=== PATIENT | male | born 1955 | race Caucasian/White ===

== ENCOUNTER 2024-04-09 02:50 | Inpatient (IN) | payer OTHER ==
[~2024-04-09] VITALS: Ht 170.2 cm; Wt 76.7 kg
--- NOTE | 2024-04-09 02:58 | NUR ---
BIBA BLS TO 3
[2024-04-09 03:07] VITALS: BP 89/41; PULSE 113; RESP 14; TEMP 99.1; O2SAT 96
--- NOTE | 2024-04-09 03:15 | NUR ---
68y/o male biba due to new onset of confusion that started today. per ems, pt also expierencing generalized weakness and was recently seen at the hospital for uti. pt was started on antibiotics yesterday. pt arrived tachy and hypotensive. pt able to answer questions appropriately. denies any pain. pt alert and oriented to person, place, time, and situation on assessment. nka pmhx: afib, cva
[2024-04-09] MEDS: NACL 0.9% 2,000 ML IV ONE (03:18)
[2024-04-09 03:26] LABS: BASOPHILS % (AUTO) 0.4 % (0.0-2.0); EOSINOPHILS % (AUTO) 0.2 % (0.0-4.0); HEMATOCRIT 39.5 % (36-52); HEMOGLOBIN 13.2 g/dL (12.0-18.0); LYMPHOCYTES # (AUTO) 0.4 K/uL (2.0-11.5); LYMPHOCYTES % (AUTO) 6.3 % (20.5-51.1); MEAN CORPUSCULAR HEMOGLOBIN 30 pg (27-31); MEAN CORPUSCULAR HGB CONC 34 g/dL (33-37); MEAN CORPUSCULAR VOLUME 89.3 fL (80-94); MONOCYTES # (AUTO) 0.5 K/uL (0.8-1.0); MONOCYTES % (AUTO) 7.9 % (1.7-9.3); NEUTROPHILS # (AUTO) 5.3 K/uL (1.8-7.7); NEUTROPHILS % (AUTO) 85.2 % (42.2-75.2); PLATELET COUNT (AUTO) 228 K/uL (140-450); RED BLOOD CELL COUNT(AUTO) 4.42 MIL/uL (4.20-6.10); WHITE BLOOD COUNT (AUTO) 6.3 K/uL (4.8-10.8)
[2024-04-09 03:40] LABS: ANION GAP 16.3 (8-16); CALCIUM 9.6 mg/dL (8.5-10.1); CARBON DIOXIDE 23.7 mmol/L (21-32)
[2024-04-09 03:41] VITALS: O2SAT 99
[2024-04-09 03:41] LABS: INR 1.11 (0.8-1.2); PARTIAL THROMBOPLASTIN TIME 32.4 secs (22-35.6); PROTHROMBIN TIME 11.5 secs (10.8-13.4)
--- NOTE | 2024-04-09 03:41 | NUR ---
RT AT BEDSIDE.
--- NOTE | 2024-04-09 03:41 | NUR ---
68YR OLD MALE BIBA FROM HOME FOR GENRALIZED WEAKNESS X2 WEEKS. ENDORSES PT WAS RECENTLY SEEN AT [facility] FOR UTI AND WAS PRESCRIBED ANTIBIOTICS. PER , PT BASELINE IS AOX4 AND USES WHEELCAHIR AND WALKER AT HOME. PT DOES HAVE 2 ULCERS OF THE BUTTOCK PER . PT APPEARS LETHARHIC AND IS BEDBOUND. STATES TODAY PT SEEMED WEAKER AND CONFUSED. TODAY, SAYS "HE THOUGHT I WAS ARRESTING HIM." PT ON BEDSIDE MONITOR, BEDRAILS UPX2, AND AT BEDSIDE. NKDA A-FIB DM NEUROPATHY RETINA ISSUES
[2024-04-09 03:49] LABS: LACTIC ACID 1.4 mmol/L (0.4-2.0)
[2024-04-09 04:04] LABS: ALANINE AMINOTRANSFERASE 18 U/L (12-78); ALBUMIN 3.2 g/dL (3.4-5.0); ALKALINE PHOSPHATASE 88 U/L (50-136); ASPARTATE AMINOTRANSFERASE 17 U/L (15-37); BILIRUBIN,DIRECT 0.3 mg/dL (0.0-0.3); CREATINE KINASE, TOTAL 13 U/L (39-308); TOTAL BILIRUBIN 0.7 mg/dL (0.0-1.0); TOTAL PROTEIN, SERUM 7.3 g/dL (6.4-8.2)
[2024-04-09] MEDS ORDERED: BACL10TA4 PO (04:21)
[2024-04-09] MEDS ORDERED: IBUP-1842 PO (04:21)
[2024-04-09] MEDS ORDERED: GABA300C PO (04:21)
[2024-04-09] MEDS ORDERED: CARER90 PO (04:21)
[2024-04-09] MEDS ORDERED: ASPI81CT20 PO (04:21)
[2024-04-09] MEDS ORDERED: CHOL1TAB11 PO (04:21)
[2024-04-09] MEDS ORDERED: ATOR20TA PO (04:21)
[2024-04-09] MEDS ORDERED: CHOL5000 PO (04:21)
[2024-04-09] MEDS ORDERED: APIX5TAB PO (04:21)
[2024-04-09] MEDS ORDERED: PRO5 PO (04:21)
[2024-04-09] MEDS ORDERED: CIPR500T4 PO (04:21)
[2024-04-09] MEDS ORDERED: TAMS0.4C96 PO (04:21)
[2024-04-09 05:34] LABS: APPEARANCE,URINE CLEAR (CLEAR); BILIRUBIN,URINE NEGATIVE (NEGATIVE); BLOOD, URINE 1+ (NEGATIVE); COLOR,URINE YELLOW (YELLOW); LEUKOCYTE ESTERASE ,URINE 1+ (NEGATIVE); NITRITE, URINE NEGATIVE (NEGATIVE); PROTEIN,URINE NEGATIVE (NEGATIVE); UGLUCOSE NEGATIVE (NEGATIVE); UROBILINOGEN,URINE 0.2 EU/dL (0.2 - 1)
[2024-04-09 05:37] VITALS: O2SAT 99
[2024-04-09] MEDS: KCL 20 MEQ IN 100 mL PREMIX 200 ML IV ONE (05:37)
--- NOTE | 2024-04-09 05:38 | NUR ---
PT RESTING IN BED AND ON BEDSIDE MONITOR. AT BEDSIDE, CALL LIGHT WITHIN REACH.
[2024-04-09 05:42] LABS: BACTERIA,URINE >30 (MANY) /HPF (None Seen); MUCUS,URINE 1+ /LPF (None Seen); SQUAMOUS EPITHELIAL CELL,UR 0-3 (FEW) /LPF (0-3 (FEW))
[2024-04-09] MEDS: ALBUMIN HUMAN 25% 50 ML IV ONE (05:42)
[2024-04-09] MEDS: NACL 0.9% 500 ML IV ONE (05:43)
[2024-04-09 05:49] LABS: BLOOD GAS PCO2 36.2 mmHg (35.0-48.0); BLOOD GAS PH 7.354 (7.350-7.450); BLOOD GAS PO2 76.5 mmHg (83.0-108.0)
[2024-04-09 05:50] LABS: BLOOD GAS BASE EXCESS -5.2 mmol/L (-2.0-3.0); BLOOD GAS HCO3 19.7 mmol/L (21.0-28.0); BLOOD GAS O2 SAT% 94.9 % (94.0-98.0)
--- NOTE | 2024-04-09 06:06 | NUR ---
PT'S BP DROPPED DOWN TO 81/47, DR. MEYERS AT BEDSIDE. BP CYCLED AGAIN AT 81/45.
[2024-04-09] MEDS ORDERED: CEFEPIME 2,000 MG VIAL IV ONE (06:24)
[2024-04-09] MEDS: CEFEPIME 2,000 MG in DEXTROSE 5% 100 ML IV ONE (06:29)
[2024-04-09] MEDS ORDERED: ONDANSETRON 4 MG/2 ML VIAL IVP PRN (06:45)
--- NOTE | 2024-04-09 07:12 | NUR ---
Received report from ABIMAEL Waldron. Assumed care at this time.
--- NOTE | 2024-04-09 07:30 | NUR ---
Pt resting in bed, eyes closed, cardiac rhythm in A-fib ranging 100's-130's, otherwise vss, rectal temp of 95.6 improving from initial temperature, bear hugger remains in place, side rails x2. at bedside.
[2024-04-09] MEDS: NACL 0.9% 1,000 ML IV SCH (07:35)
[2024-04-09] MEDS ORDERED: AZITHROMYCIN 500 MG in DEXTROSE 5% 250 ML IV SCH (09:00)
[2024-04-09] MEDS ORDERED: CEFEPIME 1,000 MG in DEXTROSE 5% 50 ML IV SCH (09:00)
[2024-04-09] MEDS ORDERED: CEFEPIME 1,000 MG VIAL ONE (09:19)
[2024-04-09] MEDS: MORPHINE SULFATE 2 MG/ML SYR IVP SCH (09:32)
--- NOTE | 2024-04-09 09:40 | NUR ---
#16 FR Ruggiero catheter with 10 ml utilizing sterile technique. Immediate return of 1300 ml marco, cloudy urine noted. Bedside drainage bag placed below level of bladder. Pt tolerated procedure well.
[2024-04-09] MEDS: GABAPENTIN 300 MG CAP PO SCH (10:01)
[2024-04-09] MEDS: TAMSULOSIN 0.4 MG CAP PO SCH (10:01)
[2024-04-09] MEDS: ASPIRIN 81 MG TAB.CHEW PO SCH (10:02)
[2024-04-09] MEDS: APIXABAN 2.5 MG TAB PO SCH (10:02)
[2024-04-09] MEDS: MIDODRINE 5 MG TAB PO SCH (10:02)
[2024-04-09] MEDS: BLOOD GLUCOSE MONITORING 1 DEV DEV FS SCH (11:38)
[2024-04-09] MEDS: INSULIN LISPRO SLIDING SCALE 100 UNITS/ML VIAL SUBQ PRN (11:48)
--- NOTE | 2024-04-09 12:28 | NUR ---
Covering for primary RN -- VS taken, paged for low BP.
--- NOTE | 2024-04-09 12:59 | NUR ---
report returned to primary RN -- advised of pending call to MD re: low BP.
[2024-04-09] MEDS ORDERED: CEFEPIME 2,000 MG in DEXTROSE 5% 100 ML IV SCH (13:00)
--- NOTE | 2024-04-09 13:30 | NUR ---
PT STABLE, RESTING IN BED EYES OPEN, AT BEDSIDE.
--- NOTE | 2024-04-09 14:10 | NUR ---
S/W DR SMITH REGARDING PT'S BP DROPPING TO 80'S/40'S AT 1230, BP HAS IMPROVED, ORDER GIVEN FOR ONE ALBUMIN 25% 200ML.
[2024-04-09] MEDS ORDERED: ALBUMIN HUMAN 25% 100 ML IV ONE (14:15)
[2024-04-09] MEDS: ALBUMIN HUMAN 25% 100 ML IV SCH ×2 (14:34→16:26)
--- NOTE | 2024-04-09 15:30 | NUR ---
PT STABLE, VSS, ALBUMIN CONTINUES INFUSING, ALL NEEDS MET AT THIS TIME.
--- NOTE | 2024-04-09 18:27 | NUR ---
Patient will be admitted to care of DR. BECK. Admited to ICU. Will go to room 6. Belongings list completed. Report to DEMETRIA GARCIA.
--- NOTE | 2024-04-09 18:35 | NUR ---
PT RECEIVED FROM Erica REPORT RECEIVED FROM DEMETRIA FINNEGAN. PATIENT IS SEEN ON BED, DROWSY BUT AROUSABLE. CONNECTED TO LENGTH CONTROL TESTER, CONTROLLED A FIB IS SEEN. ON ROOM AIR. WITH SACRAL WOUND NOTED. WITH 2 IV'S 18G L WRIST INFUSING NS @ 75 ML/HR AND 20 R AC. PATIENT HAS MOHAMUD CATHETER WITH PINKISH COLORED URINE NOTED. PATIENT CLEANED AND REPOSITIONED. BED LOCKED AND IN LOW POSITION. CALL LIGHT PLACED WITHIN REACH
[2024-04-09 20:00] VITALS: BP 121/49; PULSE 102; PULSE 94; RESP 9; TEMP 97; O2SAT 99
[2024-04-09] MEDS: cefTRIAXone 1,000 MG VIAL ONE (21:43)
[2024-04-09] MEDS: ATORVASTATIN 20 MG TAB PO SCH (21:45)
[2024-04-09] MEDS: MORPHINE SULFATE 2 MG/ML SYR IVP PRN (21:47)
[2024-04-09 22:00] VITALS: BP 109/95; PULSE 99; RESP 10; O2SAT 97
[2024-04-09 23:27] VITALS: BP 121/49; PULSE 102; RESP 9; TEMP 97; O2SAT 99
[2024-04-10] VITALS (11 sets, daily range): BP systolic 93–143; BP diastolic 44–85; PULSE 74–130; RESP 10–20; TEMP 97–97.4; O2SAT 97–99
[2024-04-10 05:12] LABS: BASOPHILS % (AUTO) 0.2 % (0.0-2.0); EOSINOPHILS # (AUTO) 0.1 K/uL (0-0.4); EOSINOPHILS % (AUTO) 2.1 % (0.0-4.0); HEMATOCRIT 32.8 % (36-52); LYMPHOCYTES # (AUTO) 0.7 K/uL (2.0-11.5); LYMPHOCYTES % (AUTO) 10.6 % (20.5-51.1); MEAN CORPUSCULAR HEMOGLOBIN 30 pg (27-31); MEAN CORPUSCULAR HGB CONC 34 g/dL (33-37); MEAN CORPUSCULAR VOLUME 90.3 fL (80-94); MONOCYTES # (AUTO) 0.5 K/uL (0.8-1.0); NEUTROPHILS # (AUTO) 5.1 K/uL (1.8-7.7); NEUTROPHILS % (AUTO) 79.1 % (42.2-75.2); PLATELET COUNT (AUTO) 190 K/uL (140-450); RED BLOOD CELL COUNT(AUTO) 3.64 MIL/uL (4.20-6.10); RED CELL DISTRIBUTION WIDTH 15.9 % (11.6-13.7); WHITE BLOOD COUNT (AUTO) 6.4 K/uL (4.8-10.8)
[2024-04-10 05:45] LABS: ANION GAP 15.9 (8-16); CALCIUM 8.5 mg/dL (8.5-10.1)
[2024-04-10 05:56] LABS: POTASSIUM 2.9 mmol/L (3.5-5.1)
[2024-04-10 06:23] LABS: MAGNESIUM 1.7 mg/dL (1.8-2.4); PHOSPHORUS 2.3 mg/dL (2.5-4.9)
--- NOTE | 2024-04-10 07:28 | NUR ---
TRANSFER OF CARE TO DAY SHIFT, CARE OF PATIENT ENDORSED TO PANFILO. ALSO ENDORSED FOR PANFILO TO FOLLOW UP WITH MD FOR MEDICATION ORDER FOR LOW POTASSIUM, ON-CALL MD DID NOT CALL BACK
--- NOTE | 2024-04-10 07:29 | NUR ---
RECEIVED BEDSIDE REPORT FROM FINISHED CIGAR MAKER NURSE, PT RESTING, NO DISTRESS NOTED, AWAKE ALERT. IV TO LEFT AC 20G PATENT INTACT, INFUSING WELL. IV TO RIGHT WRIST 18G PATENT INTACT, SL. PT ON ROOM AIR, NO SOB NOTED. MOHAMUD CATH IN PLACE DRAINING WELL, BLOOD NOTED IN MOHAMUD. INITIAL ASSESSMENT DONE, ALL SAFETY PRECAUTION MET, CALL LIGHT WITHIN REACH.
[2024-04-10] MEDS ORDERED: KCL 20 MEQ IN 100 mL PREMIX 200 ML IV SCH (08:02)
--- NOTE | 2024-04-10 08:06 | NUR ---
DR RICE AT BEDSIDE ASSESSING PT, PER TO HOLD APAXIBAN DUE TO BLOOD IN THE URINE, OK TO GIVE ASPIRIN, WILL CONTINUE WITH ORDERS.
[2024-04-10] MEDS: MAG SULF 2000 MG/WATER PREMIX 50 ML IV SCH (08:14)
--- NOTE | 2024-04-10 08:43 | NUR ---
DUE MEDICATIONS ADMINISTERED, PT TOLERATED WELL, SAFETY PRECAUTION IN PLACE, CALL LIGHT WITHIN REACH.
--- NOTE | 2024-04-10 08:50 | NUR ---
DR. PENA ROUNDING AT BEDSIDE AND GIVEN UPDATES. PER DR. PENA, WILL CONSULT DR. PAULSON AND WILL SPEAK WITH DR. RICE REGARDING DOWNGRADE. NEW ORDER RECEIVED TO START DIABETIC DIET.
--- NOTE | 2024-04-10 08:50 | NUR ---
PATIENT HAS BEEN SCREENED AND CATEGORIZED HIGH NUTRITION RISK. PATIENT WILL BE SEEN WITHIN 1-2 DAYS OF ADMISSION. 04/10/24 04/11/24 FNS REFERRAL RECEIVED FOR PRESSURE ULCER. VESNA SWEET RD
[2024-04-10] MEDS: POTASSIUM CHLORIDE 40 MEQ, LIDOCAINE 1% 25 MG in NACL 0.9% 250 ML IV ONE (10:49)
--- NOTE | 2024-04-10 12:04 | NUR ---
PT RESTING IN BED, BLOOD SUGAR CHECKED, INSULIN GIVEN PER PROTOCOL, PT AT BEDSIDE, HELPING PT WITH LUNCH, TOLERATING WELL. ALL SAFETY PRECAUTION IN PLACE, CALL LIGHT WITHIN REACH.
--- NOTE | 2024-04-10 13:16 | NUR ---
SPOKE TO DR PAULSON REGARDING PT, PER TO IRRIGATE MOHAMUD CATH Q1H 30ML UNTIL URINE IS CLEAR. WILL CONTINUE WITH ORDERS.
--- NOTE | 2024-04-10 13:30 | NUR ---
PT MOHAMUD IRRIGATED, PT TOLERATED WELL, NO RESISTANCE, NOTED URINE WITH A TINGE OF RED, WILL REPEAT PER ORDER.
--- NOTE | 2024-04-10 14:21 | NUR ---
04/10/24 RD INITIAL ASSESSMENT COMPLETED PLEASE REFER TO NUTRITION ASSESSMENT UNDER CARE ACTIVITY FOR ESTIMATED NUTRITIONAL NEEDS. 1. CONTINUE [id number] DIET TOLERATED 2. RECOMMEND GLUCERNA BID -PROVIDES ADDITIONAL 440 KCAL AND [address] TO FOLLOW-UP 3-5 DAYS, MODERATE RISK VESNA SWEET, RD
--- NOTE | 2024-04-10 18:30 | NUR ---
IRRIGATED PT MOHAMUD, STILL HAS BLOOD IN URINE. PT RESTING, NO DISTRESS NOTED, CALL LIGHT WITHIN REACH.
--- NOTE | 2024-04-10 18:45 | NUR ---
TRANSFERRED PT TO TELE ROOM 120A, REPORT GIVEN TO RUSSELL RN , PT STABLE, CALL LIGHT WITHIN REACH, AT BEDSIDE.
--- NOTE | 2024-04-10 19:00 | NUR ---
RECEIVED SHEFIT ENDORSEMENT FROM RUSSELL RN THAT PATIENT WAS A TRANSFER FROM ICU. PATIENT WAS ABLE TO TALK WITH FAMILY AT BEDSIDE. PATIENT WAS ALERT AND ORIENTED X 3. PATIENT DENIES ANY PAIN/DISCOMFORT AT THIS TIME. PATIENT HAS NOT EATEN DINNER AND WE WILL FEED HIM LATER BECAUSE HE REQUESTED TO EAT LATER. ALL NEEDS MET AT THIS TIME. SIDE RAILS UP X 3. CALL LIGHT WITHIN REACH. WHEN VISITING HOURS ARE OVER NURSING WILL FREQUENT THE ROOM IN ANTICIPATION OF NEEDS. [email or web address]
--- NOTE | 2024-04-10 20:00 | NUR ---
Patient's Plan of Care was discussed and reviewed with SENIOR FINANCIAL ACCOUNTANT: KVNG BOWEN
--- NOTE | 2024-04-10 23:32 | NUR ---
NEW ORDERS FOR SLEEPING PRN AND MILD PAIN MEDICATION. ONCMAHAMED RAUSCH. [email or web address]
[2024-04-10] MEDS: ACETAMINOPHEN 325 MG TAB PO PRN (23:41)
[2024-04-10] MEDS: ZOLPIDEM 5 MG TAB PO PRN (23:41)
[2024-04-11] VITALS (7 sets, daily range): BP systolic 110–125; BP diastolic 54–59; PULSE 81–145; RESP 17–18; TEMP 97.3–97.8; O2SAT 95–99
--- NOTE | 2024-04-11 02:18 | NUR ---
PATIENT NOTED IN BED RESTING. CHEST RISING AND FALLING EVENLY WITHOUT INCIDENT. IT HAS BEEN NOTED THAT HEART RATE PATTERN IS A-FLUTTERS BUT PATIENT REMAINS STABLE WITHOUT S/S OF CARDIAC DISTRESS. THIS WILL BE REPORTED TO AM SHIFT FOR A FOLLOW UP. NO S/S OF PAIN/DISCOMFORT. NO NOTED RESPIRATORY DISTRESS. KEEP CLEAN AND DRY. ALL NEEDS MET AT THIS TIME. SIDE RAILS UP X 3 FOR SAFETY. CALL LIGHT WITHIN REACH. [email or web address]
[2024-04-11 05:14] LABS: BASOPHILS % (AUTO) 0.6 % (0.0-2.0); EOSINOPHILS # (AUTO) 0.1 K/uL (0-0.4); EOSINOPHILS % (AUTO) 1.9 % (0.0-4.0); HEMOGLOBIN 11.7 g/dL (12.0-18.0); LYMPHOCYTES # (AUTO) 0.8 K/uL (2.0-11.5); LYMPHOCYTES % (AUTO) 11.1 % (20.5-51.1); MEAN CORPUSCULAR HEMOGLOBIN 30 pg (27-31); MEAN CORPUSCULAR HGB CONC 34 g/dL (33-37); MEAN CORPUSCULAR VOLUME 90.4 fL (80-94); MONOCYTES # (AUTO) 0.6 K/uL (0.8-1.0); MONOCYTES % (AUTO) 8.3 % (1.7-9.3); NEUTROPHILS # (AUTO) 5.3 K/uL (1.8-7.7); NEUTROPHILS % (AUTO) 78.1 % (42.2-75.2); PLATELET COUNT (AUTO) 193 K/uL (140-450); RED BLOOD CELL COUNT(AUTO) 3.87 MIL/uL (4.20-6.10); RED CELL DISTRIBUTION WIDTH 16.8 % (11.6-13.7); WHITE BLOOD COUNT (AUTO) 6.7 K/uL (4.8-10.8)
--- NOTE | 2024-04-11 05:21 | NUR ---
DURING ROUNDS PATIENT NOTED IN BED RESTING. CHEST RISING AND FALLING EVENLY. PATIENT WAS KEPT CLEAN AND DRY. NO S/S OF PAIN/DISCOMFORT. NO S/S OF RESPIRATORY DISTRESS. URINE STILL NOTED DARK MAROON COLOR. SIDE RAILS UP X 3 CALL LIGHT WITHIN REACH. NURSING WILL FREQUENT ROOM THE ROOM IN ANTICIPATION FOR ASSISTANCE. [email or web address]
[2024-04-11 05:28] LABS: ANION GAP 16.6 (8-16); CALCIUM 8.5 mg/dL (8.5-10.1); CARBON DIOXIDE 22.8 mmol/L (21-32); CREATININE 0.8 mg/dL (0.6-1.3); POTASSIUM 3.4 mmol/L (3.5-5.1)
--- NOTE | 2024-04-11 07:05 | NUR ---
RECEIVED PT FROM CINDER PIT CRANE OPERATOR FOR CONTINUITY OF CARE. ALERT AND ORIENTED X 4. RESP. EVEN AND UNLABORED. ON ROOM AIR. PIV TO RT WRIST 18G ON SALINE LOCK. PIV TO LAC 20G ON SALINE LOCK. MOHAMUD CATHETER INTACT, DRAINING BLOOD TINGE URINE OUTPUT. SACRAL WOUND, DRESSING INTACT. NO C/O PAIN OR DISCOMFORT. CALL LIGHT KEPT WITHIN REACH. CONTINUE PLAN OF CARE.
--- NOTE | 2024-04-11 07:08 | NUR ---
ENDORSEMENT TO CRISTOBAL VARGHESE FOR CONTINUATION OF CARE, PATIENT WAS STABLE DURING SHIFT CHANGE. [email or web address]
--- NOTE | 2024-04-11 12:11 | NUR ---
BS CHECKED 160. HUMALOG 2 UNITS WAS GIVEN. TOLERATED WELL.
[2024-04-11] MEDS: DIGOXIN 0.25 MG/ML AMP IV SCH (14:24)
--- NOTE | 2024-04-11 17:30 | NUR ---
BS CHECKED 169. HUMALOG 2 UNITS WAS GIVEN TOLERATED WELL.
[2024-04-11] MEDS: DILTIAZEM 60 MG TAB PO SCH (17:32)
[2024-04-11] MEDS: POTASSIUM CHLORIDE 10 MEQ TABER PO ONE (17:32)
--- NOTE | 2024-04-11 19:25 | NUR ---
ENDORSED TO SALES TEAM MANAGER FOR CONTINUITY OF CARE. REMAINS STABLE.
[2024-04-11] MEDS: BACLOFEN 10 MG TAB PO PRN (21:46)
[2024-04-11] MEDS: cefTRIAXone 1,000 MG VIAL ONE (22:23)
[2024-04-12] VITALS: BP 109/36; PULSE 88; PULSE 91; RESP 18; TEMP 97.3; O2SAT 95
[2024-04-12 04:00] VITALS: BP 119/76; PULSE 93; PULSE 99; RESP 18; TEMP 97.8; O2SAT 93
[2024-04-12 05:14] LABS: BASOPHILS % (AUTO) 0.5 % (0.0-2.0); EOSINOPHILS % (AUTO) 0.5 % (0.0-4.0); HEMATOCRIT 31.4 % (36-52); HEMOGLOBIN 10.7 g/dL (12.0-18.0); LYMPHOCYTES # (AUTO) 0.7 K/uL (2.0-11.5); LYMPHOCYTES % (AUTO) 8.8 % (20.5-51.1); MEAN CORPUSCULAR HEMOGLOBIN 31 pg (27-31); MEAN CORPUSCULAR HGB CONC 34 g/dL (33-37); MEAN CORPUSCULAR VOLUME 90.8 fL (80-94); MONOCYTES # (AUTO) 0.8 K/uL (0.8-1.0); MONOCYTES % (AUTO) 10.3 % (1.7-9.3); NEUTROPHILS # (AUTO) 6.2 K/uL (1.8-7.7); NEUTROPHILS % (AUTO) 79.9 % (42.2-75.2); PLATELET COUNT (AUTO) 168 K/uL (140-450); RED BLOOD CELL COUNT(AUTO) 3.45 MIL/uL (4.20-6.10); RED CELL DISTRIBUTION WIDTH 16.5 % (11.6-13.7); WHITE BLOOD COUNT (AUTO) 7.7 K/uL (4.8-10.8)
[2024-04-12 05:22] LABS: ANION GAP 11.5 (8-16); CALCIUM 8.3 mg/dL (8.5-10.1); CARBON DIOXIDE 26.6 mmol/L (21-32); CREATININE 0.7 mg/dL (0.6-1.3); POTASSIUM 3.1 mmol/L (3.5-5.1)
--- NOTE | 2024-04-12 07:05 | NUR ---
RECEIVED PT FROM DIPLOMA DENTAL ASSISTANT FOR CONTINUITY OF CARE. ALERT AND ORIENTED X 4. RESP. EVEN AND UNLABORED. ON ROOM AIR. PIV TO RAC 18 G ON SALINE LOCK. PIV TO LFA 20G ON SALINE LOCK. MOHAMUD CATHETER INTACT, DRAINING BLOOD TINGE URINE OUTPUT. SACRAL WOUND, DRESSING INTACT. NO C/O PAIN OR DISCOMFORT. CALL LIGHT KEPT WITHIN REACH. CONTINUE PLAN OF CARE.
[2024-04-12 07:41] VITALS: O2SAT 93
[2024-04-12 08:00] VITALS: BP 111/38; PULSE 76; PULSE 81; RESP 18; TEMP 97.5; O2SAT 96
--- NOTE | 2024-04-12 09:15 | NUR ---
SCHEDULED MEDICATIONS GIVEN. CARDIZEM NOT GIVEN. BP 111/38, HR 76 DR. MCKINNEY NOTIFIED.
[2024-04-12] MEDS: POTASSIUM CHLORIDE 10 MEQ TABER PO SCH (11:17)
--- NOTE | 2024-04-12 11:23 | NUR ---
BS CHECKED 154. HUMALOG 2 UNITS GIVEN. K DUR 40 MEQ GIVEN. TOLERATED WELL.
[2024-04-12 12:00] VITALS: PULSE 94
[2024-04-12] MEDS ORDERED: AMOX-999 PO (14:42)
[2024-04-12] MEDS ORDERED: TAMS0.4C96 PO (14:42)
--- NOTE | 2024-04-12 16:15 | NUR ---
PT LEFT. DISCHARGED TO HOME. TRANSPORTED VIA PRIVATE VEHICLE PER WHEELCHAIR, ACCOMPANIED BY HIS . ALERT AND ORIENTED X 3. ID BAND AND IV REMOVED. SACRAL WOUND, DRESSING CHANGE. MOHAMUD CATHETER INTACT DRAINING YELLOW URINE. ALL PERSONAL BELONGINGS TAKEN. REMAINS STABLE.
== END 2024-04-12 16:31 | disposition home or self-care (01) | DRG 871 ==
LOC: EDBD 02:50 → MED 02:50 → MTU 07:32 → MIC 18:06 → MTU 04-10 18:40
PROVIDERS: ADMIT Hospitalist; ATTEND Hospitalist
DX: A41.9 Sepsis, unspecified organism (principal); R65.21 Severe sepsis with septic shock; N17.9 Acute kidney failure, unspecified; N13.6 Pyonephrosis; I48.20 Chronic atrial fibrillation, unspecified; E11.9 Type 2 diabetes mellitus without complications; N40.1 Benign prostatic hyperplasia with lower urinary tract symptoms; I10 Essential (primary) hypertension; E78.5 Hyperlipidemia, unspecified; E87.6 Hypokalemia; Z86.73 Personal history of transient ischemic attack (TIA), and cerebral infarction without residual deficits; Z79.01 Long term (current) use of anticoagulants; Z79.82 Long term (current) use of aspirin; Z79.899 Other long term (current) drug therapy; Z74.01 Bed confinement status
CPT/HCPCS: 36415; 71045; 76770; 80048; 80076; 81001; 82550; 82553; 82948; 83605; 83735; 83874; 83880; 84100; 84484; 85025; 85610; 85730; 87040; 87081; 87086; 87186; 93005; 96361; 96365; 96368; 99291; J0692; J0696; J1160; J1815; J2001; J2270; J3475; J3480; J7030; J7060; P9046; Q0092